=== PATIENT | female | born 1990 | race African-American/Black ===

== ENCOUNTER 2021-12-29 02:59 | Inpatient (IN) | payer MEDICAID, OTHER ==
[~2021-12-29] VITALS: Ht 162.6 cm; Wt 90.7 kg
[2021-12-29] MEDS ORDERED: NALOXONE HCL 0.4 MG/ML 1ML VIAL IM PRN (03:45)
[2021-12-29] MEDS ORDERED: RHO(D) IMMUNE GLOBULIN 300 MCG/SYR IM ONE (03:45)
[2021-12-29] MEDS ORDERED: MAGNESIUM 4 G PREMIX 100 ML IV SCH (03:45)
[2021-12-29] MEDS ORDERED: PNV1TABL76 PO (04:09)
[2021-12-29 05:30] LABS: BASOPHILS % 0.4 % (0.0-2.0); EOSINOPHILS % 1.9 % (0.0-5.0); HEMATOCRIT. 25.5 % (36.0-48.0); HEMOGLOBIN. 8.5 g/dL (12.0-16.0); MEAN CORPUSCULAR HEMOGLOBIN 25.6 pg (28.0-32.0); MEAN CORPUSCULAR VOLUME 76.6 fL (81.0-99.0); MEAN PLATELET VOLUME 7.9 fl (7.4-10.4); MONOCYTES % 10.1 % (2.0-8.0); NEUTROPHILS % 62.6 % (40.0-76.0); PLATELET 201 x1000/uL (130-400); RED BLOOD CELL COUNT 3.32 mill/uL (4.2-5.4); RED CELL DISTRIBUTION WIDTH 15.7 % (11.6-14.6)
[2021-12-29] MEDS: DEXT 5%/LACTATED RINGERS 1,000 ML IV SCH ×2 (05:30→17:50)
[2021-12-29] MEDS: AMPICILLIN 2,000 MG in SODIUM CHLORIDE 0.9% 50 ML IV SCH ×4 (05:32→23:35)
[2021-12-29] MEDS: BETAMETHASONE ACET/BETAMET 30 MG/5 ML VIAL IM SCH (05:32)
[2021-12-29] MEDS ORDERED: ERYTHROMYCIN LACTOBIONATE 1,000 MG in SODIUM CHLORIDE 0.9% 250 ML IV SCH (06:00)
[2021-12-29] MEDS: MAGNESIUM 20 G PREMIX (L & D) 500 ML IV SCH ×2 (06:20→15:25)
[2021-12-29 07:15] LABS: *AMPHETAMINES SCREEN URINE NEGATIVE (NEGATIVE)
[2021-12-29 07:16] LABS: *BENZODIAZEPINES SCREEN URINE NEGATIVE (NEGATIVE); *COCAINE SCREEN URINE NEGATIVE (NEGATIVE); METHADONE URINE SCREEN NEGATIVE (NEGATIVE); OPIATES URINE SCREEN NEGATIVE (NEGATIVE); PHENCYCLIDINE URINE SCREEN NEGATIVE (NEGATIVE)
[2021-12-29 07:27] LABS: PARTIAL THROMBOPLASTIN TIME 26.8 sec (23.4-31.0); PROTHROMBIN TIME 10.4 sec (9.6-11.0)
[2021-12-29 07:27] LABS: CANNABINOID URINE SCREEN PRESUMTIVE POSITIVE (NEGATIVE)
[2021-12-29 08:01] LABS: CLARITY URINE CLEAR (CLEAR); COLOR URINE DK YELLOW (YELLOW); KETONES URINE 1+ (NEGATIVE); LEUKOCYTE ESTERASE URINE 1+ (NEGATIVE); NITRITE URINE NEGATIVE (NEGATIVE); OCCULT BLOOD URINE NEGATIVE (NEGATIVE); PROTEIN URINE NEGATIVE (NEGATIVE); SPECIFIC GRAVITY URINE 1.012 (1.005-1.030)
[2021-12-29] MEDS: AZITHROMYCIN 500 MG in DEXT 5% WATER 250 ML IV SCH (09:26)
[2021-12-29] MEDS ORDERED: BUTORPHANOL TARTRATE 2 MG/ML VIAL IV PRN (20:30)
[2021-12-29 23:03] LABS: *BARBITURATES SCREEN URINE NEGATIVE (NEGATIVE)
[2021-12-30] MEDS: MAGNESIUM 20 G PREMIX (L & D) 500 ML IV SCH (01:37)
[2021-12-30] MEDS: ACETAMINOPHEN 500MG TABLET PO PRN ×2 (03:01→15:44)
[2021-12-30] MEDS: AMPICILLIN 2,000 MG in SODIUM CHLORIDE 0.9% 50 ML IV SCH ×3 (05:40→18:04)
[2021-12-30] MEDS: BETAMETHASONE ACET/BETAMET 30 MG/5 ML VIAL IM SCH (05:46)
[2021-12-30] MEDS: AZITHROMYCIN 500 MG in DEXT 5% WATER 250 ML IV SCH (09:02)
[2021-12-30] MEDS: DEXT 5%/LACTATED RINGERS 1,000 ML IV SCH (09:10)
[2021-12-31] MEDS: AMPICILLIN 2,000 MG in SODIUM CHLORIDE 0.9% 50 ML IV SCH ×2 (00:18→06:36)
[2021-12-31] MEDS: AZITHROMYCIN 500 MG in DEXT 5% WATER 250 ML IV SCH (09:31)
[2021-12-31] MEDS: LACTATED RINGERS 1,000 ML IV SCH (09:39)
[2021-12-31] MEDS ORDERED: AMPICILLIN 2,000 MG in SODIUM CHLORIDE 0.9% 50 ML IV SCH (13:30)
[2021-12-31] MEDS ORDERED: AZITHROMYCIN 500 MG TABLET PO SCH (14:00)
[2021-12-31] MEDS ORDERED: AMOXICILLIN 500 MG CAPSULE PO SCH (14:00)
[2021-12-31 15:08] LABS: HEPATITIS B SURFACE ANTIGEN NEGATIVE
[2021-12-31] MEDS: ACETAMINOPHEN 500MG TABLET PO PRN (20:48)
[2022-01-01] MEDS: AMOXICILLIN 500 MG CAPSULE PO SCH ×3 (01:57→16:21)
[2022-01-01 06:23] LABS: BASOPHILS % 0.2 % (0.0-2.0); EOSINOPHILS % 0.4 % (0.0-5.0); HEMATOCRIT. 24.1 % (36.0-48.0); HEMOGLOBIN. 7.9 g/dL (12.0-16.0); LYMPHOCYTES % 18.3 % (20.0-50.0); MEAN CORPUSCULAR HEMOGLOBIN 25.2 pg (28.0-32.0); MEAN CORPUSCULAR VOLUME 77.1 fL (81.0-99.0); MONOCYTES % 13.3 % (2.0-8.0); NEUTROPHILS % 67.8 % (40.0-76.0); PLATELET 184 x1000/uL (130-400); RED BLOOD CELL COUNT 3.12 mill/uL (4.2-5.4); RED CELL DISTRIBUTION WIDTH 16.1 % (11.6-14.6)
[2022-01-01] MEDS ORDERED: ROPIVACAINE HCL/PF EPIDURAL 200 ML EPI SCH (07:00)
[2022-01-01] MEDS ORDERED: ROPIVACAINE HCL/PF EPIDURAL 200 ML EPI ONE (11:11)
[2022-01-01] MEDS: LACTATED RINGERS 1,000 ML IV SCH (17:50)
[2022-01-01] MEDS ORDERED: DEXT 5%/LR + PITOCIN 20UNITS/L 1,000 ML IV SCH ×2 (18:30→18:45)
[2022-01-02] MEDS: LACTATED RINGERS 1,000 ML IV SCH (00:41)
[2022-01-02] MEDS: AMOXICILLIN 500 MG CAPSULE PO SCH (01:13)
[2022-01-02] MEDS ORDERED: FENTANYL CITRATE/PF 50MCG/ML 2ML VIAL ONE (09:30)
[2022-01-02] MEDS ORDERED: ACETAMINOPHEN WITH CODEINE 300/30MG TABLET PO PRN (10:30)
[2022-01-02] MEDS ORDERED: IBUPROFEN 800MG TABLET PO PRN (10:30)
[2022-01-02] MEDS ORDERED: GLYCERIN/WITCH HAZEL LEAF MEDICATED PAD TOP PRN (10:30)
[2022-01-02] MEDS ORDERED: RHO(D) IMMUNE GLOBULIN 300 MCG/SYR IM PRN (10:30)
[2022-01-02] MEDS ORDERED: HEMORRHOIDAL SUPP PR PRN (10:30)
[2022-01-02] MEDS ORDERED: DIPHENHYDRAMINE 25MG CAPSULE PO PRN (10:30)
[2022-01-02] MEDS ORDERED: DEXT 5%/LR + PITOCIN 20UNITS/L 1,000 ML IV SCH (10:30)
[2022-01-02] MEDS ORDERED: LANOLIN OINT 7GM TUBE TOP PRN (10:30)
[2022-01-02] MEDS ORDERED: IBUPROFEN 400MG TABLET PO PRN (10:30)
[2022-01-02] MEDS ORDERED: BISACODYL 10MG SUPP PR PRN (10:30)
[2022-01-02 12:00] VITALS: BP 113/60
[2022-01-02 16:17] VITALS: BP 118/65
[2022-01-02 20:00] VITALS: BP 110/63
[2022-01-02] MEDS ORDERED: DOCUSATE SODIUM 100MG CAPSULE PO SCH (21:00)
[2022-01-03 04:00] VITALS: BP 112/62
[2022-01-03 07:57] VITALS: BP 114/78
[2022-01-03 08:28] LABS: BASOPHILS % 0.2 % (0.0-2.0); HEMOGLOBIN. 7.7 g/dL (12.0-16.0); LYMPHOCYTES % 26.2 % (20.0-50.0); MEAN CORPUSCULAR HEMOGLOBIN 24.5 pg (28.0-32.0); MEAN CORPUSCULAR VOLUME 76.4 fL (81.0-99.0); MEAN PLATELET VOLUME 8.5 fl (7.4-10.4); MONOCYTES % 8.1 % (2.0-8.0); NEUTROPHILS % 64.5 % (40.0-76.0); PLATELET 189 x1000/uL (130-400); RED BLOOD CELL COUNT 3.14 mill/uL (4.2-5.4); RED CELL DISTRIBUTION WIDTH 15.8 % (11.6-14.6)
[2022-01-03] MEDS ORDERED: PRENATAL VIT/FE FUMARATE/FA TABLET PO SCH (09:00)
[2022-01-03] MEDS: PRENATAL VIT/FE FUMARATE/FA TABLET PO SCH (09:37)
[2022-01-03] MEDS: FERROUS SULFATE 325MG TABLET PO SCH ×3 (09:38→17:30)
[2022-01-03 20:00] VITALS: BP 104/63
[2022-01-04 05:00] VITALS: BP 112/72
[2022-01-04 08:30] VITALS: BP 114/60
[2022-01-04] MEDS: FERROUS SULFATE 325MG TABLET PO SCH (09:04)
[2022-01-04] MEDS: PRENATAL VIT/FE FUMARATE/FA TABLET PO SCH (09:05)
== END 2022-01-04 13:00 | disposition home or self-care (01) | DRG 560 ==
LOC: 8 EST LDRP 02:59 → OBSVTOIN 02:59 → EDBD 02:59 → 8EST 01-02 13:04
PROVIDERS: ADMIT Specialist; ATTEND Specialist
PROC: 10E0XZZ Delivery of Products of Conception, External Approach (ICD-10-PCS; principal; 2022-01-02)
PROC: 3E0R3BZ Introduction of Anesthetic Agent into Spinal Canal, Percutaneous Approach (ICD-10-PCS; 2022-01-02)
PROC: 00HU33Z Insertion of Infusion Device into Spinal Canal, Percutaneous Approach (ICD-10-PCS; 2022-01-02)
DX: O42.913 Preterm premature rupture of membranes, unspecified as to length of time between rupture and onset of labor, third trimester (principal); Z37.0 Single live birth; O60.14X0 Preterm labor third trimester with preterm delivery third trimester, not applicable or unspecified; O99.324 Drug use complicating childbirth; O69.81X0 Labor and delivery complicated by cord around neck, without compression, not applicable or unspecified; O99.02 Anemia complicating childbirth; Z20.822 Contact with and (suspected) exposure to COVID-19; F12.10 Cannabis abuse, uncomplicated; Z3A.33 33 weeks gestation of pregnancy; Z83.3 Family history of diabetes mellitus; Z82.5 Family history of asthma and other chronic lower respiratory diseases; Z82.49 Family history of ischemic heart disease and other diseases of the circulatory system; Z91.018 Allergy to other foods
CPT/HCPCS: 36415; 76805; 76818; 80305; 80349; 81003; 82731; 83735; 85025; 86592; 86703; 86762; 86850; 86900; 87340; 87426; 99281; J0290; J0456; J0595; J0702; J2590; J2795; J3010; J3475; J7060; J7120; J7121; A4315